=== PATIENT | female | born 2000 | race Caucasian/White ===

== ENCOUNTER 2021-06-05 02:41 | Emergency (ER) | payer OTHER ==
[~2021-06-05] VITALS: Ht 170 cm; Wt 71.0 kg
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
[2021-06-05 03:05] LABS: BASOPHILS # (AUTO) 0.1 10^3/uL (0.0-0.1); BASOPHILS % (AUTO) 1 % (0-10); EOSINOPHILS # (AUTO) 0.4 10^3/uL (0.0-0.3); EOSINOPHILS % (AUTO) 7 % (0-10); HEMATOCRIT 42 % (35-52); HEMOGLOBIN 13.4 g/dL (11.5-16.0); LYMPHOCYTES # (AUTO) 2.5 10^3/uL (1.0-4.0); LYMPHOCYTES % (AUTO) 46 % (12-44); MEAN CORPUSCULAR HEMOGLOBIN 30 pg (25-34); MEAN CORPUSCULAR HGB CONC 32 g/dL (32-36); MEAN CORPUSCULAR VOLUME 93 fL (80-99); MEAN PLATELET VOLUME 10.6 fL (9.0-12.2); MONOCYTES # (AUTO) 0.5 10^3/uL (0.0-1.0); MONOCYTES % (AUTO) 9 % (0-12); NEUTROPHILS # (AUTO) 2.1 10^3/uL (1.8-7.8); NEUTROPHILS % (AUTO) 37 % (42-75); PLATELET COUNT 229 10^3/uL (130-400); WHITE BLOOD COUNT 5.5 10^3/uL (4.3-11.0)
[2021-06-05 03:17] LABS: ALBUMIN 3.7 GM/DL (3.2-4.5); POTASSIUM 3.8 MMOL/L (3.6-5.0)
[2021-06-05 03:19] LABS: CALCIUM 8.7 MG/DL (8.5-10.1)
[2021-06-05 03:20] LABS: TOTAL PROTEIN 6.9 GM/DL (6.4-8.2)
[2021-06-05 03:22] LABS: BILIRUBIN,TOTAL 0.5 MG/DL (0.1-1.0)
[2021-06-05 03:23] LABS: CREATININE SERUM 0.77 MG/DL (0.60-1.30)
[2021-06-05 03:35] LABS: BILIRUBIN,URINE NEGATIVE (NEGATIVE); GLUCOSE, URINE (UA) NEGATIVE (NEGATIVE); KETONES,URINE NEGATIVE (NEGATIVE); LEUKOCYTE ESTERASE ,URINE NEGATIVE (NEGATIVE); NITRITE,URINE NEGATIVE (NEGATIVE); PH,URINE 6.5 (5-9); PROTEIN,URINE TRACE (NEGATIVE)
[2021-06-05 03:43] LABS: BACTERIA,URINE TRACE /HPF; CLARITY,URINE CLOUDY; COLOR,URINE AMBER; RBC,URINE TNTC /HPF
[2021-06-05] MEDS ORDERED: KETOROLAC 30 MG/ML VIAL IVP ONE (03:45)
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
[2021-06-05 04:11] VITALS: BP 107/75
== END 2021-06-05 04:14 | disposition home or self-care (01) ==
LOC: ER 02:46
DX: M54.50 Low back pain, unspecified (principal); Z72.0 Tobacco use
CPT/HCPCS: 36415; 70450; 71045; 72125; 72170; 80053; 81000; 84703; 85025; 87491; 87591